=== PATIENT | male | born 1980 | race Caucasian/White ===

== ENCOUNTER 2023-02-01 17:39 | Emergency (ER) | payer MEDICAID ==
[~2023-02-01] VITALS: Ht 175.3 cm; Wt 103.9 kg
[2023-02-01 18:45] VITALS: O2SAT 97
== END 2023-02-01 18:51 | disposition left against medical advice (07) ==
LOC: ER 17:42 → EDBD 17:42 → ER 18:51
DX: Z53.21 Procedure and treatment not carried out due to patient leaving prior to being seen by health care provider (principal)
CPT/HCPCS: A4663